=== PATIENT | male | born 1965 | race African-American/Black ===

== ENCOUNTER 2018-05-19 13:18 | Emergency (ER) | payer SELFPAY ==
[~2018-05-19] VITALS: Ht 167.6 cm; Wt 81.6 kg
[2018-05-19 13:51] VITALS: BP 157/83
[2018-05-19] MEDS ORDERED: IBUPROFEN 600 MG TABLET. PO ONE (14:30)
--- NOTE | 2018-05-19 14:37 | PHYS DOC ---
Past Medical History Past Medical History: No Pertinent History Past Surgical History: Other Additional Past Surgical Histo: vasectomy Alcohol Use: None Drug Use: None Adult General Chief Complaint Chief Complaint: FLU SYMPTOM HPI HPI 53-year-old male presents to ER via POV for complaints of flulike illness for the past 2 days.Pt reports he has had cough with white phlegm, runny nose, bodyaches, and hives. Pt reports he hasn't had fever but has had chills. He reports he has been drinking flds but appetite has been decreased. He reports generalized fatigue but has been able to work. He denies N/V/D, SOA, CP, abd pain, or urinary sxs. He denies OTC meds. 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 He smokes <1/2 ppd cigarettes. Review of Systems Review of Systems Constitutional: Denies fever. Reports chills and generalized fatigue Eyes: Denies redness, or eye pain [] HENT: Reports sinus drainage and sore throat Respiratory: Denies shortness of breath. Reports prod. cough w/white phlegm Cardiovascular: Denies CP GI: Denies abdominal pain, nausea, vomiting, bloody stools or diarrhea [] : Denies urinary sxs Musculoskeletal: Reports generalized bodyaches- denies neck stiffness Integument: Reports hives 2 days ago- which has since subsided Neurologic: Denies headache, focal weakness or sensory changes [] All other systems were reviewed and found to be within normal limits, except as documented in this note. Current Medications Current Medications Current Medications Medications (Trade) Dose Ordered Sig/Anay Start Time Stop Time Status Last Admin Dose Admin Ibuprofen (Motrin) 600 mg 1X ONCE 05/19/18 14:30 05/19/18 14:42 DC 05/19/18 14:30 600 MG Allergies Allergies Allergies Coded Allergies Type Severity Reaction Last Updated Verified No Known Drug Allergies 05/19/18 No Physical Exam Physical Exam Constitutional: Well developed, well nourished, no acute distress, non-toxic appearance. [] HENT: Normocephalic, atraumatic, mild erythema bilat. TM without bulging/ perforation/purulent drainage- external canals NL, oropharynx moist- mild pharyngeal erythema without swelling- uvula midline, no oral exudates, nose normal. [] Eyes: PERRLA, EOMI, conjunctiva normal, no discharge. [] Neck: Normal range of motion, no tenderness- no nuchal rigidity, supple, no gross adenopathy Cardiovascular: Heart rate regular rhythm, no murmur [] Lungs & Thorax: Bilateral breath sounds clear to auscultation- good air movement thru all lung cervantes. No wheezing/rhonchi. Resp. equal/nonlabored Abdomen: Bowel sounds normal, soft, no tenderness Skin: Warm, dry, no erythema, no rash. Pt had reported hives on upper extremities/abd with onset of sxs- no rash/hives or abnorm. skin condition found on exam Back: No tenderness, no CVA tenderness. [] Extremities: No tenderness, no cyanosis, no clubbing, ROM intact, no edema. [] Neurologic: Alert and oriented X 3, normal motor function, normal sensory function, no focal deficits noted. [] Psychologic: Affect normal, judgement normal, mood normal. [] Current Patient Data Vital Signs Vital Signs Date Time Temp Pulse Resp B/P (MAP) Pulse Ox O2 Delivery O2 Flow Rate FiO2 05/19/18 13:51 98.0 84 18 157/83 (107) 97 Room Air 98.0 EKG EKG [] Radiology/Procedures Radiology/Procedures [] Course & Med Decision Making Course & Med Decision Making Pt was evaluated in the ER for flulike illness. Patient was offered flu test and he didn't feel like he was be able to control his reaction to having the swab inserted into his nasal passage. Discussion had with patient regarding the test and swab insertion. Following discussion patient still does not feel he can control his reaction feels he may grab at the staff member doing the swab. With patient not being able to control himself he is not wanting to have test done. Discussed probable viral symptoms however with no testing done could not rule out flu. Patient had clear bilateral lung sounds with no respiratory distress and so no imaging was done. Patient was nontoxic in appearance and in no distress during his exam. Multiple times patient would drift from conversation and want to talk about multiple other issues which have been ongoing for years including borderline hypertension- BP 158/76 during this conversation-afebrile at 98.0. Pt had not taken any [id number]-[id number] medications for body aches. He was offered ibuprofen and was accepting of this treatment. Will provide patient with clinic and physician referral information with discharge paperwork for follow-up purposes. Patient encouraged to increase fluid intake, [id number] ibuprofen and/or Tylenol, smoking cessation, and eating well balanced meals. Discharge instructions were discussed and patient was educated on signs and symptoms to return to ER for. Dragon Disclaimer Dragon Disclaimer This electronic medical record was generated, in whole or in part, using a voice recognition dictation system. Departure Departure Impression: Primary Impression: Flu-like symptoms Disposition: HOME, SELF-CARE Condition: STABLE Referrals: NO PCP (PCP) Patient Instructions: Viral Syndrome Additional Instructions: As discussed without doing a flu test could not rule out this as a diagnosis. Tylenol and/or ibuprofen as directed on container as needed for pain and fever relief. You can use other [id number] treatments such as Mucinex, Afrin, and or other flu and cold type medications as directed on container. Avoid smoking. Eat well-balanced meal and drink plenty of fluids. YOJANA CRANDALL APRN May 19, 2018 14:37
== END 2018-05-19 14:47 | disposition home or self-care (01) ==
LOC: ER 13:18
DX: R05 Cough (principal); R09.89 Other specified symptoms and signs involving the circulatory and respiratory systems; R53.83 Other fatigue; L50.9 Urticaria, unspecified; M79.18 Myalgia, other site; F17.210 Nicotine dependence, cigarettes, uncomplicated; Z98.52 Vasectomy status
CPT/HCPCS: 99282